=== PATIENT | female | born 1990 | race Caucasian/White ===

== ENCOUNTER 2017-07-22 03:22 | Emergency (ER) | payer SELFPAY ==
[~2017-07-22] VITALS: Ht 160 cm; Wt 68.0 kg
[2017-07-22 03:28] VITALS: BP 132/75
[2017-07-22] MEDS ORDERED: CIPR7.5D EACH EAR (04:24)
--- NOTE | 2017-07-22 04:25 | PHYS DOC ---
Past Medical History Past Medical History: No Pertinent History Past Surgical History: No Surgical History Alcohol Use: None Drug Use: None Adult General Chief Complaint Chief Complaint: EARACHE/EAR PAIN HPI HPI Patient is a 27 year old female who presents with right ear pain. She reports 3 day history of right sided jaw & facial pain now localized to the ear. Denies drainage. Denies fevers/chills, nausea/vomiting, dental pain, trismus. Review of Systems Review of Systems Constitutional: Denies fever or chills HENT: Reports ear pain Respiratory: Denies cough Cardiovascular: Denies chest pain GI: Denies abdominal pain, nausea, vomiting Integument: Denies rash Neurologic: Denies headache Current Medications Current Medications Current Medications Medications (Trade) Dose Ordered Sig/Robbie Start Time Stop Time Status Last Admin Dose Admin Ibuprofen (Motrin) 600 mg 1X ONCE 07/22/17 04:30 07/22/17 04:30 DC 07/22/17 04:16 600 MG Allergies Allergies Allergies Coded Allergies Type Severity Reaction Last Updated Verified No Known Drug Allergies 07/22/17 No Physical Exam Physical Exam Constitutional: Well developed, well nourished, no acute distress, non-toxic appearance. HENT: Normocephalic, atraumatic, bilateral external ears normal, left TM & EAC are normal in appearance, right TM normal, right otitis externa with canal erythema & edema, oropharynx moist, nose normal. no dental pain or abscess, no trismus or jaw swelling. Eyes: conjunctiva normal, no discharge. Cardiovascular: no edema. Lungs & Thorax: no respiratory distress. Abdomen: nondistended. Skin: Warm, dry, no erythema, no rash. Extremities: No deformity Neurologic: Alert and oriented X 3 Current Patient Data Vital Signs Vital Signs Date Time Temp Pulse Resp B/P (MAP) Pulse Ox O2 Delivery O2 Flow Rate FiO2 07/22/17 03:28 97.6 100 18 97 Room Air 97.6 EKG EKG [] Radiology/Procedures Radiology/Procedures [] Course & Med Decision Making Course & Med Decision Making Pertinent Labs and Imaging studies reviewed. (See chart for details) The patient presents with otitis externa. Given prescription for antibiotic drops. Recommend rest, hydration, Tylenol or ibuprofen for pain. Follow-up with primary care physician in 2-3 days. Discharged home in stable condition. [] Dragon Disclaimer Dragon Disclaimer This electronic medical record was generated, in whole or in part, using a voice recognition dictation system. Departure Departure Impression: Primary Impression: Otitis externa Disposition: 01 HOME, SELF-CARE Condition: STABLE Referrals: NO PCP (PCP) MYRNA DOOLEY MD Patient Instructions: Otitis Externa, [id number] Additional Instructions: You were seen in the emergency department today for outer ear infection. Please use the prescribed eardrops. Take Tylenol or ibuprofen for pain. Follow-up with primary care physician such as Dr. Dooley if not improving in 2-3 days. Scripts Ciprofloxacin Hcl/Dexameth (CIPRODEX OTIC SUSPENSION) 7.5 Ml Drops.susp 3 DROP EACH EAR BID, #1 BOTTLE Prov: VERONICA MANNING MD 07/22/17 Problem Qualifiers Primary Impression: Otitis externa Otitis externa type: unspecified type Chronicity: acute Laterality: right Qualified Codes: H60.501 - Unspecified acute noninfective otitis externa, right ear VERONICA MANNING MD Jul 22, 2017 04:25
[2017-07-22] MEDS ORDERED: IBUPROFEN 600 MG TABLET. PO ONE (04:30)
== END 2017-07-22 04:29 | disposition home or self-care (01) ==
LOC: ER 03:22
DX: H60.501 Unspecified acute noninfective otitis externa, right ear (principal)
CPT/HCPCS: 99283